=== PATIENT | female | born 1980 | race American Indian/Alaskan Native ===

== ENCOUNTER 2018-01-06 10:55 | Emergency (ER) | payer OTHER ==
[2018-01-06 10:55] VITALS: BMI 28.3
[2018-01-06] MEDS ORDERED: Albuterol-Ipratrop 3 mg / 0.5 (3 ml) UD INH STA (11:27)
--- NOTE | 2018-01-06 12:05 | RAD ---
HISTORY: sob COMPARISON: 01/09/2013 TECHNIQUE: Chest PA and lateral FINDINGS: LUNGS: No active pulmonary disease. PLEURA: No significant pleural effusion identified. No pneumothorax apparent. CARDIOVASCULAR: Normal. OSSEOUS STRUCTURES: No significant abnormalities. VISUALIZED UPPER ABDOMEN: Normal. OTHER FINDINGS: None. IMPRESSION: No active disease.
[2018-01-06] MEDS ORDERED: Albuterol-Ipratrop 3 mg / 0.5 (3 ml) UD ONE (12:11)
--- NOTE | 2018-01-06 12:11 | C.PDOC ---
History Of Present Illness 37 yo female with PMH of asthma c/o persistent cough for 4 days. Notes that she has been using her inhaler without significant improvement, though reports running out of her nebulizer medication. States this feels similar to her usual asthma exacerbation. H/o multiple admissions for asthma is the past, no intubations. Quit smoking "4 days ago when this started." Denies fever, difficulty swallowing , n/v, abdominal pain, headache, or neck pain. Time Seen by Provider: 01/06/18 10:55 Chief Complaint (Nursing): Cough, Cold, Congestion History Per: Patient History/Exam Limitations: no limitations Onset/Duration Of Symptoms: Days Current Symptoms Are (Timing): Still Present Associated Symptoms: Cough, Sputum, Nasal Congestion Past Medical History Vital Signs: Last Vital Signs Temp 98.5 F 01/06/18 13:32 Pulse 85 01/06/18 13:32 Resp 20 01/06/18 13:32 BP 144/69 01/06/18 13:32 Pulse Ox 98 01/06/18 13:32 - Medical History PMH: Asthma, Bronchitis - [facility] Procedures NEBULIZER THERAPY (09/22/14) Family History: States: Unknown Family Hx - Social History Hx Tobacco Use: Yes Hx Alcohol Use: Yes Hx Substance Use: No - Immunization History Hx Tetanus Toxoid Vaccination: No Hx Influenza Vaccination: No Hx Pneumococcal Vaccination: No Review Of Systems Except As Marked, All Systems Reviewed And Found Negative. Respiratory: Positive for: Cough, Shortness of Breath Physical Exam - Physical Exam Appears: Well, Non-toxic, No Acute Distress Skin: Normal Color, Warm, Dry Head: Atraumatic, Normacephalic Eye(s): bilateral: Normal Inspection, PERRL, EOMI Nose: Normal Oral Mucosa: Moist Throat: Normal, No Erythema, No Exudate Neck: Normal, Normal ROM, Supple Chest: Symmetrical Cardiovascular: Rhythm Regular Respiratory: Wheezing (scattered wheezing), Other (occassional productive cough , pt is speaking in full sentences, walking up and down the ER and talking on the phone without acute distress) Gastrointestinal/Abdominal: Normal Exam Back: Normal Inspection Extremity: Normal ROM Neurological/Psych: Oriented x3, Normal Speech ED Course And Treatment O2 Sat by Pulse Oximetry: 100 - Radiology CXR: Interpreted by Me, Viewed By Me CXR Interpretation: Yes: No Acute Disease Progress Note: Duo neb and solumedrol ordered. On reassessment, patient is resting comfortably with no wheezing, chest pain, or retractions. Oxygen saturation WNL and breath sounds have improved. Patient is alert and oriented x 3. Patient was advised to follow up with physician/clinic in 1-2 days and return to ED if symptoms worsen or persist. Disposition - Disposition Disposition: HOME/ ROUTINE Disposition Time: 12:14 Condition: STABLE Additional Instructions: Follow up with your primary medical doctor or clinic in 2-5 days for further evaluation. Take medications as prescribed. Return to the emergency department at any time if symptoms persist or worsen. Prescriptions: Albuterol 0.083% [Albuterol 0.083% Inhal Janelle (2.5 mg/3 ml) UD] 2.5 mg IH Q6 PRN #30 neb PRN Reason: Shortness Of Breath Azithromycin [Zithromax] 250 mg PO DAILY #6 tab predniSONE [Prednisone] 40 mg PO DAILY #8 tab Instructions: Acute Bronchitis Forms: [email or web address] [facility] (Dominican) - Clinical Impression Clinical Impression: Bronchitis, Asthma exacerbation
[2018-01-06] MEDS ORDERED: Albuterol 0.083% Inhal Sol (2.5 mg/3 mL) UD IH STA (12:32)
[2018-01-06] MEDS ORDERED: Albuterol 0.083% Inhal Sol (2.5 mg/3 mL) UD ONE (12:48)
[2018-01-06 13:33] VITALS: BP 144/69; PULSE 85; RESP 20; TEMP 98.5
[2018-01-06 13:38] VITALS: O2SAT 100
== END 2018-01-06 13:33 | disposition home or self-care (01) ==
LOC: C.ER 10:55
DX: J45.901 Unspecified asthma with (acute) exacerbation (principal); Z87.891 Personal history of nicotine dependence
CPT/HCPCS: 71046; 96372; 99281; J2930

== ENCOUNTER 2018-07-15 20:46 | Emergency (ER) | payer OTHER ==
[2018-07-15 20:46] VITALS: BMI 28.3
[2018-07-15 21:03] VITALS: BP 122/91; PULSE 96; RESP 20; TEMP 97.8; O2SAT 100
[2018-07-15 21:37] LABS: HCG,QUALITATIVE URINE NEGATIVE (NEGATIVE)
[2018-07-15 21:41] LABS: SQUAMOUS EPITHIAL 3 /hpf (0-5); URINE BACTERIA RARE (<OCC); URINE BILIRUBIN NEGATIVE (NEGATIVE); URINE BLOOD 2+ (NEGATIVE); URINE CLARITY Clear (Clear); URINE COLOR Yellow (YELLOW); URINE GLUCOSE (UA) NORMAL (Normal); URINE LEUKOCYTE ESTERASE NEG Leu/uL (Negative); URINE PROTEIN NEGATIVE (NEGATIVE); URINE UROBILINOGEN NORMAL mg/dL (0.2-1.0)
[2018-07-15 21:48] LABS: BARBITURATES, UR NEGATIVE (NEGATIVE); BENZODIAZEPINES, UR NEGATIVE (NEGATIVE); OPIATES, UR NEGATIVE (NEGATIVE)
[2018-07-15 21:50] LABS: PHENCYCLIDINE, UR POSITIVE (NEGATIVE)
--- NOTE | 2018-07-15 21:55 | C.PDOC ---
History Of Present Illness 37 y/o female pt brought by EMS because of possible drug use. Per mom patient was high outside and per EMS pt was high outside having just snorted some drugs. Mother request detox for pt, but pt denies any drug use and does not want a detox. Pt also denies fever, chills, chest pain, abdominal pain, constipation and SI/HI. She denies any complaints, and notes only chronic dental pain. Chief Complaint (Nursing): Substance Abuse History Per: Patient History/Exam Limitations: no limitations Onset/Duration Of Symptoms: Hrs Current Symptoms Are (Timing): Still Present Suicide/Self Injury Attempted (Context): None Additional History Per: Family (mom) Past Medical History Reviewed: Historical Data, Nursing Documentation, Vital Signs Vital Signs: Last Vital Signs Temp 97.8 F 07/15/18 20:49 Pulse 96 H 07/15/18 20:49 Resp 20 07/15/18 20:49 BP 122/91 H 07/15/18 20:49 Pulse Ox 100 07/15/18 20:49 - Medical History PMH: Asthma, Bronchitis - [facility] Procedures NEBULIZER THERAPY (09/22/14) Family History: States: Unknown Family Hx - Social History Hx Tobacco Use: Yes Hx Alcohol Use: Yes Hx Substance Use: Yes (Dip, Dust, PCP) - Immunization History Hx Tetanus Toxoid Vaccination: No Hx Influenza Vaccination: No Hx Pneumococcal Vaccination: No Review Of Systems Constitutional: Negative for: Fever, Chills Eyes: Negative for: Pain ENT: Positive for: Mouth Pain (chronic orthodontic braces pain). Negative for: Ear Pain, Ear Discharge, Nose Pain, Nose Discharge, Nose Congestion, Mouth Swelling, Throat Pain, Throat Swelling Cardiovascular: Negative for: Chest Pain Respiratory: Negative for: Cough, Shortness of Breath, SOB with Excertion, Pleuritic Pain Gastrointestinal: Negative for: Nausea, Vomiting, Abdominal Pain, Constipation Genitourinary: Negative for: Dysuria, Hematuria, Vaginal Discharge, Vaginal Bleeding, Pelvic Pain, Rash Musculoskeletal: Negative for: Neck Pain, Shoulder Pain, Back Pain Neurological: Negative for: Weakness, Numbness, Incoordination, Confusion, Seizures, Altered Mental Status Psych: Negative for: Anxiety, Suicidal ideation, Other (homicidal ideation) Physical Exam - Physical Exam Appears: Well, Non-toxic, No Acute Distress Skin: Warm, Dry Head: Normacephalic Eye(s): bilateral: Normal Inspection, PERRL, EOMI Nose: Normal Oral Mucosa: Moist Tongue: Normal Appearing, No Swelling Lips: Normal Appearing, No Swelling Teeth: Normal Dentition, No Caries, No Edentulous, No Dentures, No Tender To Palpation, No Loose, No Avulsed, Other (braces in place, no abscess or caries noted. ) Gingiva: Normal Appearing, No Erythema, No Ulceration, No Swelling, No Tender, No Bleeding, No Abscess Neck: Normal, Trachea Midline, Supple, Other (no meningeal signs, negative kernig's and brudzinski's. No ludwigs, no swelling,) Lymphatic: Normal Exam Chest: Symmetrical Cardiovascular: Rhythm Regular, No Rhythm Irregular, No Friction Rub, No Murmur Respiratory: Normal Breath Sounds, No Rales, No Rhonchi, No Wheezing Gastrointestinal/Abdominal: Normal Exam, Soft, No Tenderness, No Distention Back: Normal Inspection, No CVA Tenderness Extremity: Normal ROM (x4) Extremity: Bilateral: Atraumatic, Normal Color And Temperature Neurological/Psych: Oriented x3, Normal Speech, Normal Cognition, Normal Cranial Nerves, No Cerebellar Signs, Normal Motor, Normal Sensation, No Other (neuro deficit) Gait: Steady Extremity: Right: No Drift, Left: No Drift, Upper: No Drift, Lower: No Drift ED Course And Treatment O2 Sat by Pulse Oximetry: 100 (RA) Pulse Ox Interpretation: Normal Medical Decision Making Medical Decision Making: Well appearing 37 yr old F p/w BIBA for acting strange: Likely on drugs. On exam pt is in NAD, with only chronic dental care complaint. She denies any drug use. She denies any fall or trauma. She denies using any drugs today. She denies that she wants any detox. No SI / HI or depression. Neuro exam unremarkable. pt is AOx3, steady gait with good capacity. Clear for d/c home. At this time the patient is ambulatory with steady gait, and is clinically sober. Discharge care of the patient included a discussion of outpatient management including available detox programs, instructions for continuing care.. Disposition - Disposition Referrals: [facility] [Outside] [facility] [Outside] [facility] [Outside] [facility] [Outside] Disposition: HOME/ ROUTINE Disposition Time: 22:19 Condition: GOOD Additional Instructions: SEE THE MACHINE STAPLER THAT PLACED YOUR BRACES. ALSO STOP TAKING DRUGS AND SEE A COUNSELOR / PROGRAM TO GET OFF OF DRUGS Instructions: Drug Abuse Treatment Forms: [facility] (Burkinan) - Clinical Impression Clinical Impression: Dental implant pain, Drug abuse - Scribe Statement The provider has reviewed the documentation as recorded by the Scribe Pereyra Do Provider Attestation: All medical record entries made by the Scribe were at my direction and personally dictated by me. I have reviewed the chart and agree that the record accurately reflects my personal performance of the history, physical exam, medical decision making, and the department course for this patient. I have also personally directed, reviewed, and agree with the discharge instructions and disposition.
== END 2018-07-15 22:37 | disposition home or self-care (01) ==
LOC: C.ER 20:46
DX: F19.10 Other psychoactive substance abuse, uncomplicated (principal); M27.69 Other endosseous dental implant failure

== ENCOUNTER 2018-07-29 18:45 | Emergency (ER) | payer OTHER ==
[2018-07-29 18:59] VITALS: BP 137/99; PULSE 67; RESP 18; TEMP 98.5; O2SAT 97; BMI 25.0
--- NOTE | 2018-07-29 19:16 | C.PDOC ---
History Of Present Illness 37 y/o female pt presents to the ER requesting detox for PCP. Pt has no physical complaints. She denies SI, HI, A/V hallucinations, headache, fever, chills, nausea, vomiting and abdominal pain. Time Seen by Provider: 07/29/18 18:50 Chief Complaint (Nursing): Substance Abuse History Per: Patient History/Exam Limitations: no limitations Onset/Duration Of Symptoms: Days Current Symptoms Are (Timing): Still Present Suicide/Self Injury Attempted (Context): None Modifying Factor(s): Other (PCP) Past Medical History Reviewed: Historical Data, Nursing Documentation, Vital Signs Vital Signs: Last Vital Signs Temp 98.5 F 07/29/18 18:54 Pulse 67 07/29/18 18:54 Resp 18 07/29/18 18:54 BP 137/99 H 07/29/18 18:54 Pulse Ox 97 07/29/18 18:54 - Medical History PMH: Asthma, Bronchitis - [facility] Procedures NEBULIZER THERAPY (09/22/14) Family History: States: Unknown Family Hx - Social History Hx Tobacco Use: Yes Hx Alcohol Use: Yes Hx Substance Use: Yes (Dip, Dust, PCP) - Immunization History Hx Tetanus Toxoid Vaccination: No Hx Influenza Vaccination: No Hx Pneumococcal Vaccination: No Review Of Systems Except As Marked, All Systems Reviewed And Found Negative. Constitutional: Positive for: Other (request detox for PCP). Negative for: Fever, Chills Gastrointestinal: Negative for: Nausea, Vomiting, Abdominal Pain Neurological: Negative for: Headache Physical Exam - Physical Exam Appears: Well, Non-toxic, No Acute Distress Head: Atraumatic, Normacephalic Eye(s): bilateral: PERRL, EOMI, Other (conjunctiva clear) Ear(s): Bilateral: Other (TM's clear) Oral Mucosa: Moist Throat: No Erythema, No Exudate, Other (uvula midline) Chest: Symmetrical Cardiovascular: No Rhythm Regular, No Murmur, Other (normal S1 and S2) Respiratory: No Rales, No Rhonchi, No Wheezing, Other (good air movement, lungs CTA b/l ) Gastrointestinal/Abdominal: Soft, No Tenderness, No Guarding, No Rebound Extremity: Bilateral: Atraumatic, Normal Color And Temperature, Other (no cyanosis or edema) Pulses: Left Dorsalis Pedis: Normal (2+), Right Dorsalis Pedis: Normal (2+) Neurological/Psych: Oriented x3, Normal Motor (5/5 muscle strength ), Normal Sensation, Other (GCS 15, CN 2-12 intact) Gait: Steady ED Course And Treatment O2 Sat by Pulse Oximetry: 97 (RA) Pulse Ox Interpretation: Normal Medical Decision Making Medical Decision Making: Update: 1917: pt denies SI/HI and reports she wants to leave and has changed her mind. Patient w/steady gait, axox3, speech clear and coherent and is stable for d/c home. Disposition - Disposition Referrals: [facility] [Outside] [facility] [Outside] Disposition: HOME/ ROUTINE Disposition Time: 19:18 Condition: STABLE Additional Instructions: BI MCKEE, thank you for letting us take care of you today. Your provider was Maricruz Mclain MD and you were treated for DETOX. The emergency medical care you received today was directed at your acute symptoms. If you were prescribed any medication, please fill it and take as directed. It may take several days for your symptoms to resolve. Return to the Emergency Department if your symptoms worsen, do not improve, or if you have any other problems. Please contact your doctor or call one of the physicians/clinics you have been referred to that are listed on the Patient Visit Information form that is included in your discharge packet. Bring any paperwork you were given at discharge with you along with any medications you are taking to your follow up visit. Our treatment cannot replace ongoing medical care by a primary care provider outside of the emergency department. Thank you for [facility] the [facility] of your care today. Forms: General Discharge Instructions, [employer] (Malian) - POA Present On Arrival: None - Clinical Impression Clinical Impression: Substance abuse - Scribe Statement The provider has reviewed the documentation as recorded by the Scribe Pereyra Do Provider Attestation: All medical record entries made by the Scribe were at my direction and personally dictated by me. I have reviewed the chart and agree that the record accurately reflects my personal performance of the history, physical exam, medical decision making, and the department course for this patient. I have also personally directed, reviewed, and agree with the discharge instructions and disposition.
== END 2018-07-29 19:27 | disposition home or self-care (01) ==
LOC: C.ER 18:45
DX: F19.10 Other psychoactive substance abuse, uncomplicated (principal); Z72.0 Tobacco use

== ENCOUNTER 2018-10-16 07:57 | Emergency (ER) | payer OTHER ==
[2018-10-16 07:57] VITALS: BMI 28.3
[2018-10-16 08:11] VITALS: BP 127/84; PULSE 88; RESP 16; TEMP 98.2; O2SAT 98
[2018-10-16 08:41] LABS: BASO % 0.3 % (0.0-2.0); EOS # 0.3 K/uL (0.0-0.7); EOS % 3.3 % (0.0-4.0); HEMOGLOBIN 11.7 g/dL (11.0-16.0); LYMPH # 1.9 K/uL (1.0-4.3); LYMPH % 22.6 % (20.0-40.0); MEAN CELL VOLUME 87.5 fL (81.0-99.0); MEAN CORPUSCULAR HEMOGLOBIN 29.4 pg (27.0-31.0); MEAN CORPUSCULAR HGB CONC 33.6 g/dL (33.0-37.0); MEAN PLATELET VOLUME 8.3 fL (7.2-11.7); MONO # 0.5 K/uL (0.0-0.8); MONO % 6.3 % (0.0-10.0); NEUT # 5.7 K/uL (1.8-7.0); NEUT % 67.5 % (50.0-75.0); RED CELL DISTRIBUTION WIDTH 13.7 % (11.5-14.5); WHITE BLOOD COUNT 8.5 K/uL (4.8-10.8)
[2018-10-16 08:52] LABS: ALB/GLOB RATIO 1.3 (1.0-2.1); ALBUMIN 3.9 g/dL (3.5-5.0); BLOOD UREA NITROGEN 15 mg/dL (7-17); CALCIUM 8.7 mg/dl (8.6-10.4); GFR NON-AFRICAN AMERICAN > 60
[2018-10-16 08:53] LABS: ALT/SGPT 11 U/L (9-52); AST/SGOT 24 U/L (14-36)
--- NOTE | 2018-10-16 09:02 | C.PDOC ---
History Of Present Illness 37 y/o female with a PMHx of asthma, sinusitis, and seasonal allergies presents to the ED with complaints of a productive cough for 2 days. Patient noticed green sputum and reports associated nasal congestion and drainage. She also r eports pleuritic chest pain with coughing and sinus pressure. Patient had 1 day of diarrhea but denies any nausea, vomiting, fever, chills, abdominal pain, dizziness, or weakness. She used an albuterol nebulizer treatment yesterday at home along with Theraflu and Afrin nasal spray but reports minimal improvement. Denies receiving flu shot this year. Denies any SOB, SANTOS, or palpitations. No known sick contacts. Time Seen by Provider: 10/16/18 08:02 Chief Complaint (Nursing): Cough, Cold, Congestion History Per: Patient History/Exam Limitations: no limitations Onset/Duration Of Symptoms: Days (x2) Current Symptoms Are (Timing): Still Present Location Of Pain: Sinus/es Associated Symptoms: Diarrhea (x 1) Past Medical History Reviewed: Historical Data, Nursing Documentation, Vital Signs Vital Signs: Last Vital Signs Temp 98.2 F 10/16/18 08:02 Pulse 88 10/16/18 08:02 Resp 16 10/16/18 08:02 BP 127/84 10/16/18 08:02 Pulse Ox 98 10/16/18 08:02 - Medical History PMH: Asthma, Bronchitis Other PMH: Sinusitis Other Surgeries: Ovarian cyst/fibroid removal - [employer] Procedures NEBULIZER THERAPY (09/22/14) Family History: States: Unknown Family Hx - Social History Hx Tobacco Use: Yes Hx Alcohol Use: Yes Hx Substance Use: Yes (Dip, Dust, PCP) - Immunization History Hx Tetanus Toxoid Vaccination: No Hx Influenza Vaccination: No Hx Pneumococcal Vaccination: No Review Of Systems Constitutional: Negative for: Fever, Chills Eyes: Negative for: Vision Change ENT: Positive for: Nose Discharge, Nose Congestion Cardiovascular: Negative for: Chest Pain, Palpitations Respiratory: Positive for: Cough, Sputum (green). Negative for: Shortness of Breath, SOB with Excertion Gastrointestinal: Negative for: Nausea, Vomiting, Abdominal Pain Musculoskeletal: Negative for: Back Pain Skin: Negative for: Rash Neurological: Negative for: Weakness, Headache, Dizziness Physical Exam - Physical Exam Appears: Non-toxic, No Acute Distress Skin: Warm, Dry, No Rash Head: Atraumatic, Normacephalic Eye(s): bilateral: Normal Inspection, PERRL, EOMI Ear(s): Bilateral: Normal Nose: Discharge (moderate turbinate hypertrophy bilaterally with yellow mucoid drainage) Oral Mucosa: Moist Throat: Normal, No Erythema, No Exudate Neck: Normal ROM, Supple Chest: Symmetrical Cardiovascular: Rhythm Regular, No Murmur Respiratory: Normal Breath Sounds, No Accessory Muscle Use, No Rhonchi, No Wheezing Gastrointestinal/Abdominal: Soft, No Tenderness, No Distention Extremity: Bilateral: Atraumatic, Normal Color And Temperature Pulses: Left Dorsalis Pedis: Normal, Right Dorsalis Pedis: Normal Neurological/Psych: Oriented x3, Normal Cranial Nerves ED Course And Treatment - Laboratory Results Result Diagrams: 10/16/18 08:34 10/16/18 08:34 Lab Results: Total Bilirubin 0.7 mg/dL (0.2-1.3) 10/16/18 08:34 AST 24 U/L (14-36) 10/16/18 08:34 ALT 11 U/L (9-52) 10/16/18 08:34 Alkaline Phosphatase 36 U/L (38-126) L 10/16/18 08:34 Total Protein 6.9 g/dL (6.3-8.3) 10/16/18 08:34 Albumin 3.9 g/dL (3.5-5.0) 10/16/18 08:34 Globulin 3.0 gm/dL (2.2-3.9) 10/16/18 08:34 Albumin/Globulin Ratio 1.3 (1.0-2.1) 10/16/18 08:34 O2 Sat by Pulse Oximetry: 98 (RA) Pulse Ox Interpretation: Normal - Other Rad CXR X-Ray: Read By Radiologist Interpretation: Accession No. : [id number]. Patient Name / ID : RYLEE PAT / [id number]. Exam Date : 10/16/2018 08:31:19 ( Approved ). Study Comment : Sex / Age : F / 37Y. Creator : conrado reza. Dictator : Feliberto Huerta MD. Trial Court Judge : Dining Room Maid : Feliberto Huerta MD. Approver2 : Report Date : 10/16/2018 08:45:27. My Comment : . Date of service: 10/16/2018. HISTORY: productive cough. COMPARISON: 01/06/2018. TECHNIQUE: Chest PA and lateral. FINDINGS: LUNGS: No active pulmonary disease. PLEURA: No significant pleural effusion identified. No pneumothorax apparent. CARDIOVASCULAR: No aortic atherosclerotic calcification present. Normal cardiac size. No pulmonary vascular congestion. OSSEOUS STRUCTURES: No significant abnormalities. VISUALIZED UPPER ABDOMEN: Normal. OTHER FINDINGS: None. IMPRESSION: No active disease. Medical Decision Making Medical Decision Making: Initial Plan: - Basic blood work - Flu swab - Urinalysis - Chest x-ray - Sudafed 60 mg PO - Reassess Progress: CXR shows no active disease. Labs reviewed, negative flu. No WBC elevation. Patient remains afebrile and is AAOx3, in no acute distress. Plan is to d/c patient home with RX for Flonase, Claritin, and Tessalon Perles. Counseled regarding diagnoses of sinusitis and viral URI. Return to ED if symptoms worsen Follow up with PMD in 1-2 days Disposition Counseled Patient/Family Regarding: Studies Performed, Diagnosis, Need For Followup, Rx Given - Disposition Referrals: Nieves Fry MD [Staff Provider] - Disposition: HOME/ ROUTINE Disposition Time: 09:44 Condition: IMPROVED Additional Instructions: BI MCKEE, thank you for letting us take care of you today. Your provider was Amanda Merida MD and you were treated for DIARRHEA/CHES PAIN. The emergency medical care you received today was directed at your acute symptoms. If you were prescribed any medication, please fill it and take as directed. It may take several days for your symptoms to resolve. Return to the Emergency Department if your symptoms worsen, do not improve, or if you have any other problems. Please contact your doctor or call one of the physicians/clinics you have been referred to that are listed on the Patient Visit Information form that is included in your discharge packet. Bring any paperwork you were given at discharge with you along with any medications you are taking to your follow up visit. Our treatment cannot replace ongoing medical care by a primary care provider outside of the emergency department. [facility] of your care today. Prescriptions: Benzonatate [Tessalon Perle] 100 mg PO TID PRN #30 capsule PRN Reason: Cough Fluticasone Propionate [Flonase] 1 spr NS BID #1 bottle Loratadine [Claritin] 10 mg PO DAILY #30 tab Instructions: Sinusitis, Adult (DC), Viral Upper Respiratory Infection, Adult (DC) Forms: [employer] (Swedish) - Clinical Impression Clinical Impression: Upper respiratory infection, Sinusitis, Cough - PA / CANINE ENFORCEMENT OFFICER / Resident Statement MD/DO has reviewed & agrees with the documentation as recorded. - Scribe Statement The provider has reviewed the documentation as recorded by the Scribe Melody Mo All medical record entries made by the Scribe were at my direction and personally dictated by me. I have reviewed the chart and agree that the record accurately reflects my personal performance of the history, physical exam, medical decision making, and the department course for this patient. I have also personally directed, reviewed, and agree with the discharge instructions and disposition.
[2018-10-16 09:06] LABS: SQUAMOUS EPITHIAL 1 /hpf (0-5); URINE BACTERIA RARE (<OCC); URINE BILIRUBIN NEGATIVE (NEGATIVE); URINE BLOOD 2+ (NEGATIVE); URINE CLARITY Clear (Clear); URINE COLOR Yellow (YELLOW); URINE GLUCOSE (UA) NORMAL (Normal); URINE LEUKOCYTE ESTERASE NEG Leu/uL (Negative); URINE PROTEIN NEGATIVE (NEGATIVE); URINE UROBILINOGEN NORMAL mg/dL (0.2-1.0)
--- NOTE | 2018-10-16 10:38 | RAD ---
Date of service: 10/16/2018 HISTORY: productive cough COMPARISON: 01/06/2018 TECHNIQUE: Chest PA and lateral FINDINGS: LUNGS: No active pulmonary disease. PLEURA: No significant pleural effusion identified. No pneumothorax apparent. CARDIOVASCULAR: No aortic atherosclerotic calcification present. Normal cardiac size. No pulmonary vascular congestion. OSSEOUS STRUCTURES: No significant abnormalities. VISUALIZED UPPER ABDOMEN: Normal. OTHER FINDINGS: None. IMPRESSION: No active disease.
== END 2018-10-16 10:00 | disposition home or self-care (01) ==
LOC: C.ER 07:57
DX: J06.9 Acute upper respiratory infection, unspecified (principal); J32.9 Chronic sinusitis, unspecified; R05 Cough; Z87.891 Personal history of nicotine dependence

== ENCOUNTER 2018-10-30 23:42 | Emergency (ER) | payer OTHER ==
[2018-10-30 23:42] VITALS: BMI 28.3
[2018-10-30 23:57] VITALS: BP 140/97; PULSE 66; RESP 20; TEMP 98.5; O2SAT 100
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
== END 2018-10-31 00:20 | disposition home or self-care (01) ==
LOC: C.ER 23:42
DX: F19.10 Other psychoactive substance abuse, uncomplicated (principal); Z04.89 Encounter for examination and observation for other specified reasons

== ENCOUNTER 2018-11-18 22:22 | Emergency (ER) | payer OTHER ==
[2018-11-18 22:23] VITALS: BMI 28.3
[2018-11-18 23:59] LABS: BASO % 0.6 % (0.0-2.0); EOS # 0.2 K/uL (0.0-0.7); EOS % 2.2 % (0.0-4.0); HEMOGLOBIN 11.4 g/dL (11.0-16.0); LYMPH # 2.6 K/uL (1.0-4.3); LYMPH % 35.5 % (20.0-40.0); MEAN CELL VOLUME 88.5 fL (81.0-99.0); MEAN CORPUSCULAR HEMOGLOBIN 29.8 pg (27.0-31.0); MEAN CORPUSCULAR HGB CONC 33.6 g/dL (33.0-37.0); MEAN PLATELET VOLUME 8.2 fL (7.2-11.7); MONO # 0.4 K/uL (0.0-0.8); MONO % 5.8 % (0.0-10.0); NEUT # 4.2 K/uL (1.8-7.0); NEUT % 55.9 % (50.0-75.0); RBC 3.84 Mil/uL (3.80-5.20); RED CELL DISTRIBUTION WIDTH 14.3 % (11.5-14.5); WHITE BLOOD COUNT 7.4 K/uL (4.8-10.8)
[2018-11-19 00:02] LABS: BARBITURATES, UR NEGATIVE (NEGATIVE); BENZODIAZEPINES, UR NEGATIVE (NEGATIVE); OPIATES, UR NEGATIVE (NEGATIVE)
[2018-11-19 00:16] LABS: PHENCYCLIDINE, UR POSITIVE (NEGATIVE)
[2018-11-19 00:17] LABS: ALB/GLOB RATIO 1.4 (1.0-2.1); ALBUMIN 4.2 g/dL (3.5-5.0); ALT/SGPT 32 U/L (9-52); AST/SGOT 64 U/L (14-36); BLOOD UREA NITROGEN 12 mg/dL (7-17); GFR NON-AFRICAN AMERICAN > 60
[2018-11-19 01:11] VITALS: BP 141/99; PULSE 62; RESP 18; TEMP 98.4; O2SAT 99
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
--- NOTE | 2018-11-19 12:43 | RAD ---
Date of service: 11/18/2018 PROCEDURE: Radiographs of the Chest and Right Ribs. HISTORY: Pain , contusion back, right COMPARISON: Comparison is made with 10/16/2018 TECHNIQUE: Frontal radiograph of the chest and multiple oblique radiographs of the right ribs were obtained. 4 views obtained. FINDINGS: RIGHT RIBS: No fracture or focal lesion visualized. LUNGS: Clear. PLEURA: No pneumothorax or pleural fluid. CARDIOVASCULAR: Normal cardiac size. No pulmonary vascular congestion. No aortic atherosclerotic calcification present OTHER FINDINGS: None. IMPRESSION: No evidence of acute displaced fracture of the right ribs. No evidence of right pleural effusion or pneumothorax.
== END 2018-11-19 01:23 | disposition home or self-care (01) ==
LOC: C.ER 22:22
DX: S30.0XXA Contusion of lower back and pelvis, initial encounter (principal); W19.XXXA Unspecified fall, initial encounter; Z72.0 Tobacco use

== ENCOUNTER 2018-12-26 10:47 | Emergency (ER) | payer OTHER ==
[2018-12-26 10:47] VITALS: BMI 28.3
[2018-12-26] MEDS ORDERED: Albuterol 0.083% Inhal Sol (2.5 mg/3 mL) UD INH STA (11:18)
[2018-12-26] MEDS ORDERED: Albuterol 0.083% Inhal Sol (2.5 mg/3 mL) UD ONE (11:19)
[2018-12-26] MEDS ORDERED: Albuterol-Ipratrop 3 mg / 0.5 (3 ml) UD IH STA (12:37)
--- NOTE | 2018-12-26 12:37 | C.PDOC ---
History Of Present Illness 38 year old female presents to ED with complaint of asthma exacerbation for the past 3 days. Patient states that she ran out of her medication. Patient states that she only uses a treatment if she has a cold or during seasonal changes. Patient denies fever, chest pain, chills, and night sweats. Time Seen by Provider: 12/26/18 11:51 Chief Complaint (Nursing): Cough, Cold, Congestion History Per: Patient History/Exam Limitations: no limitations Onset/Duration Of Symptoms: Days (3) Current Symptoms Are (Timing): Still Present Associated Symptoms: Dyspnea, Cough. denies: Fever Preciptating Factors: Ran Out Of Meds Past Medical History Reviewed: Historical Data, Nursing Documentation, Vital Signs Primary Care Provider: Nieves Fry - Medical History PMH: Asthma, Bronchitis Denies: Chronic Kidney Disease Surgical History: No Surg Hx - [facility] Procedures NEBULIZER THERAPY (09/22/14) Family History: States: Unknown Family Hx - Social History Hx Tobacco Use: Yes Hx Alcohol Use: Yes Hx Substance Use: Yes (Dip, Dust, PCP) - Immunization History Hx Tetanus Toxoid Vaccination: No Hx Influenza Vaccination: No Hx Pneumococcal Vaccination: No Review Of Systems Except As Marked, All Systems Reviewed And Found Negative. Respiratory: Positive for: Cough (dry), Shortness of Breath, Wheezing Physical Exam - Physical Exam Appears: Well, Non-toxic, No Acute Distress, Other (comfortable) Skin: Normal Color, Warm, Dry Head: Atraumatic, Normacephalic Eye(s): bilateral: Normal Inspection, PERRL, EOMI Oral Mucosa: Moist Neck: Normal ROM, Supple Chest: Symmetrical, No Deformity, No Tenderness Cardiovascular: Rhythm Regular, No Murmur Respiratory: No Accessory Muscle Use, No Rales, No Rhonchi, Wheezing (occasional) Gastrointestinal/Abdominal: Soft, No Tenderness Extremity: Capillary Refill (<2 seconds) Extremity: Bilateral: Atraumatic, Normal Color And Temperature, Normal ROM Pulses: Left Radial: Normal, Right Radial: Normal Neurological/Psych: Oriented x3, Normal Speech, Normal Cognition ED Course And Treatment Progress Note: Patient given Albuterol INH, Duoneb INH, and prednisone PO. Patient currently has a dry cough. Disposition Counseled Patient/Family Regarding: Diagnosis, Need For Followup, Rx Given - Disposition Referrals: YOUR,PMD [Other] Disposition: HOME/ ROUTINE Disposition Time: 13:30 Condition: IMPROVED Prescriptions: Albuterol 0.083% [Albuterol Sulfate 3 Ml] 3 ml IH Q4 #30 neb Albuterol HFA [Ventolin HFA 90 mcg/actuation (8 g)] 1 puff IH Q4 #1 inhaler predniSONE [Prednisone] 60 mg PO DAILY #12 tab Instructions: Asthma, Adult (DC) Forms: [facility] (Syrian), Work Excuse - Clinical Impression Clinical Impression: Exacerbation of asthma - Scribe Statement The provider has reviewed the documentation as recorded by the Scribe (Sherlyn Wesley) All medical record entries made by the Scribe were at my direction and personally dictated by me. I have reviewed the chart and agree that the record accurately reflects my personal performance of the history, physical exam, medical decision making, and the department course for this patient. I have also personally directed, reviewed, and agree with the discharge instructions and disposition.
[2018-12-26] MEDS ORDERED: Albuterol-Ipratrop 3 mg / 0.5 (3 ml) UD ONE (12:52)
[2018-12-26 12:53] VITALS: BP 137/84; PULSE 69; RESP 18; TEMP 97.7; O2SAT 100
--- NOTE | 2018-12-28 00:59 | CARD ---
APPROVED REPORT Date of service: 12/26/2018 EKG Measurement Heart [id number] <Conclusion> Normal sinus rhythm Junctional ST depression, probably normal Borderline ECG
== END 2018-12-26 13:04 | disposition home or self-care (01) ==
LOC: C.ER 10:47
DX: J45.901 Unspecified asthma with (acute) exacerbation (principal)